=== PATIENT | male | born 1990 | race Caucasian/White ===

== ENCOUNTER 2025-04-10 23:46 | Emergency (ER) | payer OTHER, SELFPAY ==
--- NOTE | 2025-04-10 23:55 | EKG_ITS ---
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
[2025-04-10 23:56] VITALS: PULSE 91; O2SAT 99
--- NOTE | 2025-04-10 23:59 | DI.RAD.S_ITS ---
PROCEDURE: XR CHEST 1V INDICATIONS: Chest Pain TECHNIQUE: One view of the chest was acquired. COMPARISON: None. FINDINGS: Surgical changes and devices: None. Lungs and pleura: Lungs are clear. No pleural effusions or pneumothorax. Mediastinum: Mediastinal contours appear normal. Heart size is normal. Bones and chest wall: No suspicious bony lesions. Overlying soft tissues appear unremarkable. IMPRESSION: No acute cardiopulmonary abnormality is seen. Dictated by: New Quevedo M.D. on 04/11/2025 at 0:36 Approved by: New Quevedo M.D. on 04/11/2025 at 0:37
[2025-04-11] VITALS: BP 165/90; PULSE 82; RESP 16; TEMP 37; O2SAT 99; BMI 47.3
[2025-04-11 00:02] VITALS: BP 147/82; PULSE 87; O2SAT 100
--- NOTE | 2025-04-11 00:15 | PC.NURSE ---
c/o intermittent chest pressure in the upper left chest non-radiating and is relieved with burping
[2025-04-11 00:21] LABS: Add Manual Diff / Slide Review NO; Hematocrit 43.6 % (41-53); Hemoglobin 15.0 g/dL (13.5-17.5); Lymphocytes Absolute Auto 3400 /uL (1100-4500); Mean Corpuscular HGB Conc 34.4 % (30-36); Mean Corpuscular Hemoglobin 29.0 PG (26-34); Mean Corpuscular Volume 84.3 fL (80-100); Platelet Count 323 X10^3/uL (150-400)
[2025-04-11 00:23] LABS: INR 1.0 (0.9-1.3); Prothrombin Time 11.1 SECONDS (9.4-12.5)
[2025-04-11 00:26] LABS: PTT Partial Thromboplastin Tim 33 SECONDS (25.1-36.5)
[2025-04-11 00:27] LABS: Alanine Aminotransferase 63 IU/L (<50); Albumin 4.8 g/dL (3.5-5.0); Albumin Globulin Ratio 1.3 (1.0-2.8); Alkaline Phosphatase 73 U/L (38-126); Blood Urea Nitrogen 17 mg/dL (9-20); Calcium 10.0 mg/dL (8.4-10.2); Carbon Dioxide 30 mmol/L (22-32); Chloride 102 mmol/L (98-107); Creatine Kinase 231 U/L (55-170); Estimated Glomerular Filt Rate > 60 mL/min (>60); Globulin 3.7 g/dL (1.7-4.1); Glucose 113 mg/dL (70-99); HEMOLYSIS < 15 (0-50); Lipase 64 U/L (23-300); Magnesium 2.0 mg/dL (1.6-2.3); Potassium 3.7 mmol/L (3.4-5.1); Sodium 141 mmol/L (137-145); Total Protein 8.5 g/dL (6.3-8.2)
[2025-04-11 00:30] VITALS: BP 134/68; PULSE 76; O2SAT 95
[2025-04-11 00:39] LABS: NT-proBNP (BNP-Adult 18+) 55 pg/mL (<125); Troponin I < 0.012 ng/mL (0.01-0.034)
--- NOTE | 2025-04-11 00:41 | ED.CHESTPAIN ---
HPI - Chest Pain General Chief Complaint: Chest Pain Stated Complaint: Chest Pain, L Arm pain Time Seen by Provider: 04/11/25 00:11 Source: patient Mode of arrival: Ambulatory Limitations: no limitations History of Present Illness HPI narrative: 34-year-old male with no prior cardiac history or family history or other risk factors presents with worsening GERD in the past 2 days and now seems more left-sided chest pain off and on. No other symptoms. Related Data Previous Rx's ?Medication ?Instructions ?Recorded omeprazole 20 mg capsule,delayed 20 mg PO DAILY #14 caps 04/11/25 release Allergies Allergy/AdvReac Type Severity Reaction Status Date / Time No Known Drug Allergies Allergy Verified 04/11/25 00:00 Review of Systems Review of Systems ROS Unobtainable: All systems reviewed & are unremarkable except as noted in HPI and below Patient History Social History Smoking Status: Former smoker Smoking Status: Former smoker Exam Narrative Exam Narrative: General: Patient appears to be in no acute distress, acting appropriately Head: normocephalic, atraumatic, HEENT: Pupils equal round reactive, eyes tracking well, neck supple, no JVD Heart: regular rate and rhythm, no murmurs, rubs, or gallops heard Lungs: clear to auscultation, no adventitious sounds Abdomen: soft , nontender, nondistended, positive bowel sounds Neurological: no focal neurological signs, moving all extremities well, alert and oriented x3, Psych: good judgment ,good insight, mood is normal. Initial Vital Signs Initial Vital Signs: Vital Signs Pulse Rate 91 H 04/10/25 23:56 Pulse Oximetry 99 04/10/25 23:56 Scores HEART Score Heart Score history: Slightly Suspicious Heart Score EKG: Normal Heart Score Age: < 45 years old Heart Score risk factors: No known risk factors Heart Score troponin: < or = to normal limit Heart Score Total: 0 Course Orders Ordered: ED Orders 04/10/25 23:50 EKG-12 Lead Stat 04/10/25 23:59 XR chest 1V Stat EKG-12 Lead Stat Discontinued Medications Al Hydrox/Mg Hydrox/Simethicone 30 ml/ Lidocaine HCl 15 ml 0 ml PO NOW ONE Stop: 04/11/25 00:41 Last Admin: 04/11/25 00:50 Dose: 45 ml Documented By: LUCY Reevaluation(s) Reevaluation #1: Upon re-evaluation, patient's chest pain is resolved after the GI cocktail. Vital Signs Vital signs: Vital Signs - 8 hr 04/10/25 23:56 04/11/25 00:00 04/11/25 00:00 Temperature 98.6 F Pulse Rate 91 H 82 82 Respiratory Rate 16 Blood Pressure 165/90 H Pulse Oximetry 99 99 99 Oxygen Delivery Method Room Air 04/11/25 00:02 04/11/25 00:02 04/11/25 00:30 Temperature Pulse Rate 87 Respiratory Rate Blood Pressure 147/82 H 134/68 Pulse Oximetry 100 Oxygen Delivery Method 04/11/25 00:30 04/11/25 01:00 04/11/25 01:00 Temperature Pulse Rate 76 77 Respiratory Rate Blood Pressure 134/70 Pulse Oximetry 95 94 Oxygen Delivery Method 04/11/25 01:30 04/11/25 01:30 04/11/25 02:00 Temperature Pulse Rate 77 Respiratory Rate Blood Pressure 121/69 118/68 Pulse Oximetry 93 Oxygen Delivery Method 04/11/25 02:00 Temperature Pulse Rate 73 Respiratory Rate Blood Pressure Pulse Oximetry 95 Oxygen Delivery Method MDM - Chest Pain Lab Data 04/10/25 00:03 04/10/25 00:03 Labs: Lab Results 04/10/25 Range/Units 00:03 WBC 10.7 (4.5-11.0) X10^3/uL RBC 5.17 (4.5-5.9) X10^6/uL Hgb 15.0 (13.5-17.5) g/dL Hct 43.6 (41-53) % MCV 84.3 (80-100) fL MCH 29.0 (26-34) PG MCHC 34.4 (30-36) % RDW 13.9 (11.6-14.8) % Plt Count 323 (150-400) X10^3/uL Neut % (Auto) 57.7 (50-75) % Lymph % (Auto) 31.7 (25-40) % [place] % (Auto) 7.4 (3-14) % Eos % (Auto) 2.0 (2-4) % Baso % (Auto) 1.2 (0-2) % Neut # (Auto) 6200 (7535-8110) /uL Lymph # (Auto) 3400 (4180-5676) /uL [place] # (Auto) 800 (0-900) /uL Eos # (Auto) 200 (0-450) /uL Baso # (Auto) 100 (0-100) /uL PT 11.1 (9.4-12.5) SECONDS INR 1.0 (0.9-1.3) APTT 33 (25.1-36.5) SECONDS Sodium 141 (137-145) mmol/L Potassium 3.7 (3.4-5.1) mmol/L Chloride 102 (98-107) mmol/L Carbon Dioxide 30 (22-32) mmol/L BUN 17 (9-20) mg/dL Creatinine 0.89 (0.66-1.25) mg/dL Estimated GFR > 60 (>60) mL/min BUN/Creatinine Ratio 19.1 (6-22) Glucose 113 H (70-99) mg/dL Calcium 10.0 (8.4-10.2) mg/dL Magnesium 2.0 (1.6-2.3) mg/dL Total Bilirubin 0.6 (0.2-1.3) mg/dL AST 40 (17-59) IU/L ALT 63 H (<50) IU/L Alkaline Phosphatase 73 (38-126) U/L Total Creatine Kinase 231 H (55-170) U/L Troponin I < 0.012 (0.01-0.034) ng/mL NT-Pro-B Natriuret Pep 55 (<125) pg/mL Total Protein 8.5 H (6.3-8.2) g/dL Albumin 4.8 (3.5-5.0) g/dL Globulin 3.7 (1.7-4.1) g/dL Albumin/Globulin Ratio 1.3 (1.0-2.8) Lipase 64 (23-300) U/L Imaging Data Chest x-ray: Radiologist's Impression: No acute cardiopulmonary abnormality is seen. ECG Data Interpretation: EKG shows a normal sinus rhythm, left axis deviation, normal [place] intervals normal QRS duration no STT wave changes. Rate is 86 beats per minute. No prior EKG for comparison. MDM Narrative Medical decision making narrative: 34-year-old male with no cardiac history presents with GERD like symptoms producing some cardiac discomfort. His pain resolved after GI cocktail. Advised to go on a gerd diet and will start omeprazole for the patient for the next 2 weeks. Cardiac workup negative here in the ED. follow up sooner if pain resumes. Discharge Plan Departure Patient Disposition: Home Clinical Impression: Atypical chest pain, Chest pain due to GERD Instructions: DI for Gastroesophageal Reflux Disease (GERD), GERD Diet Activity Restrictions/Additional Instructions: Advised that GERD is the most likely culprit of his chest discomfort. We will do a trial of Nexium for the next 2 weeks as well as a GERD diet. Patient advised to follow up if symptoms worsen. Prescriptions: New omeprazole 20 mg capsule,delayed release(DR/EC) 20 mg PO DAILY Qty: 14 0RF Stand Alone Forms: Patient Portal/API
[2025-04-11] MEDS: MAG HYDROX/ALUMINUM/SIMETH SUS 30 ML, LIDOCAINE VISCOUS 2% 15 ML PO (00:50)
[2025-04-11 01:00] VITALS: BP 134/70; PULSE 77; O2SAT 94
[2025-04-11 01:30] VITALS: BP 121/69; PULSE 77; O2SAT 93
--- NOTE | 2025-04-11 01:34 | PC.NURSE ---
pt states he thinks the cocktail made his stomach gurgle causing him to feel some pressure in the upper part of his chest, causing him to burp giving him some relief. states he was not really having c/p prior to taking the coctail
[2025-04-11 02:00] VITALS: BP 118/68; PULSE 73; O2SAT 95
== END 2025-04-11 02:15 | disposition home or self-care (01) ==
PROVIDERS: Emergency Provider Family Medicine
DX: K21.9 Gastro-esophageal reflux disease without esophagitis (principal); Z87.891 Personal history of nicotine dependence
CPT/HCPCS: 71045; 80053; 82550; 83690; 83735; 83880; 84484; 85025; 85610; 85730; 93005; 96361; 96365; 96375; 99283; 99284

== ENCOUNTER 2025-04-15 16:16 | Emergency (ER) | payer OTHER, SELFPAY ==
[2025-04-15] VITALS (9 sets, daily range): BP systolic 136–163; BP diastolic 80–101; PULSE 70–95; RESP 16–18; TEMP 37; O2SAT 96–100; BMI 47.3
--- NOTE | 2025-04-15 16:39 | DI.RAD.S_ITS ---
PROCEDURE: XR CHEST 1V INDICATIONS: Chest Pain TECHNIQUE: One view of the chest was acquired. COMPARISON: [facility], CR, XR CHEST 1V, 04/10/2025, 23:53. FINDINGS: Surgical changes and devices: None. Lungs and pleura: Lungs are clear. No pleural effusions or pneumothorax. Mediastinum: Mediastinal contours appear normal. Heart size is normal. Bones and chest wall: No suspicious bony lesions. Overlying soft tissues appear unremarkable. IMPRESSION: No acute cardiopulmonary pathology. Dictated by: Timmy Newton M.D. on 04/15/2025 at 17:15 Approved by: Timmy Newton M.D. on 04/15/2025 at 17:15
--- NOTE | 2025-04-15 17:03 | EKG_ITS ---
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
--- NOTE | 2025-04-15 19:54 | PC.NURSE ---
Lab states they never received initial set of blood tubes. [place] drawn and sent to lab.
[2025-04-15 20:07] LABS: Add Manual Diff / Slide Review NO; Hematocrit 45.1 % (41-53); Hemoglobin 15.4 g/dL (13.5-17.5); Lymphocytes Absolute Auto 2600 /uL (1100-4500); Mean Corpuscular HGB Conc 34.1 % (30-36); Mean Corpuscular Hemoglobin 28.9 PG (26-34); Mean Corpuscular Volume 84.7 fL (80-100); Platelet Count 321 X10^3/uL (150-400)
[2025-04-15 20:10] LABS: INR 1.0 (0.9-1.3); Prothrombin Time 11.6 SECONDS (9.4-12.5)
[2025-04-15 20:13] LABS: PTT Partial Thromboplastin Tim 31 SECONDS (25.1-36.5)
[2025-04-15 20:18] LABS: Alanine Aminotransferase 70 IU/L (<50); Albumin 5.0 g/dL (3.5-5.0); Albumin Globulin Ratio 1.3 (1.0-2.8); Alkaline Phosphatase 69 U/L (38-126); Blood Urea Nitrogen 15 mg/dL (9-20); Calcium 9.4 mg/dL (8.4-10.2); Carbon Dioxide 28 mmol/L (22-32); Chloride 102 mmol/L (98-107); Creatine Kinase 148 U/L (55-170); Estimated Glomerular Filt Rate > 60 mL/min (>60); Globulin 3.9 g/dL (1.7-4.1); Glucose 94 mg/dL (70-99); Lipase 54 U/L (23-300); Magnesium 2.3 mg/dL (1.6-2.3); Potassium 4.3 mmol/L (3.4-5.1); Sodium 140 mmol/L (137-145); Total Protein 8.9 g/dL (6.3-8.2)
[2025-04-15 20:21] LABS: HEMOLYSIS 81 (0-50)
[2025-04-15 20:30] LABS: NT-proBNP (BNP-Adult 18+) < 20 pg/mL (<125); Troponin I < 0.012 ng/mL (0.01-0.034)
--- NOTE | 2025-04-15 21:50 | PC.NURSE ---
pt was here 04/10 with same, pt states he c/p was doing better and he was changing his eating habits, but he thinks today is was a more stressful day at work and he thinks that might have been the problem. pt without any c/p at this time
[2025-04-15 22:34] LABS: Troponin I < 0.012 ng/mL (0.01-0.034)
--- NOTE | 2025-04-15 22:59 | ED.CHESTPAIN ---
HPI - Chest Pain General Chief Complaint: Chest Pain Stated Complaint: Chest pain. Time Seen by Provider: 04/15/25 21:41 Source: patient Mode of arrival: Ambulatory Limitations: no limitations History of Present Illness HPI narrative: 34-year-old male recently evaluated for chest pain with negative workup, was started on omeprazole, now day 4 of new omeprazole course, had substernal precordial discomfort earlier today, no associated nausea or vomiting or diaphoresis, symptoms seemed to be resolved while in the waiting room without specific treatment. Denies cardiac risk factors known of diabetes, hypertension, hyperlipidemia, did smoke for a few years remotely, no family history of persons with CAD diagnosis at young age. Related Data Previous Rx's ?Medication ?Instructions ?Recorded omeprazole 20 mg capsule,delayed 20 mg PO DAILY #14 caps 04/11/25 release Allergies Allergy/AdvReac Type Severity Reaction Status Date / Time No Known Drug Allergies Allergy Verified 04/15/25 16:37 Patient History Social History Smoking Status: Former smoker Smoking Status: Former smoker Exam Narrative Exam Narrative: GENERAL: Well-developed patient, in mild distress. HEAD: Atraumatic. Normocephalic. EYES: Pupils equal round and reactive. Extraocular motions intact. No scleral icterus. No injection or drainage. ENT: Nose without bleeding, purulent drainage. Throat without erythema, tonsillar hypertrophy or exudate. Airway patent. NECK: Trachea midline. Non tender CARDIOVASCULAR: Regular rate and rhythm without murmurs, gallops, or rubs. RESPIRATORY: Clear to auscultation. Breath sounds equal bilaterally. No wheezes, rales, or rhonchi. GASTROINTESTINAL: Abdomen soft, non-tender, nondistended. EXTREMITIES: No edema or joint tenderness. BACK: Nontender without deformity or crepitance. No flank tenderness. NEURO: AOx3. Motor functions grossly nonfocal. SKIN: No rash or erythema of visible areas Initial Vital Signs Initial Vital Signs: Vital Signs Temperature 98.6 F 04/15/25 16:33 Pulse Rate 95 H 04/15/25 16:33 Respiratory Rate 18 04/15/25 16:33 Blood Pressure 163/91 H 04/15/25 16:33 Pulse Oximetry 98 04/15/25 16:33 Oxygen Delivery Method Room Air 04/15/25 16:33 Scores HEART Score Heart Score history: Slightly Suspicious Heart Score EKG: Normal Heart Score Age: < 45 years old Heart Score risk factors: No known risk factors Heart Score troponin: < or = to normal limit Heart Score Total: 0 Course Orders Ordered: ED Orders 04/15/25 19:52 Complete Blood Count AUTO DIFF Stat Comprehensive Metabolic Panel Stat Lipase Stat Magnesium Stat NT-proBNP (BNP-Adult 18+) Stat PTT Partial Thromboplastin Reynaldo Stat Prothrombin Time INR Stat Troponin & CK Cardiac Panel Stat 04/15/25 21:50 Trop I [Troponin I] Stat Vital Signs Vital signs: Vital Signs - 8 hr 04/15/25 21:26 04/15/25 21:27 04/15/25 21:27 Pulse Rate 81 90 Respiratory Rate Blood Pressure 154/85 H Pulse Oximetry 98 98 04/15/25 21:30 04/15/25 22:00 04/15/25 22:30 Pulse Rate 74 77 78 Respiratory Rate 18 Blood Pressure Pulse Oximetry 99 99 96 04/15/25 23:00 04/15/25 23:17 04/15/25 23:17 Pulse Rate 73 70 Respiratory Rate 16 Blood Pressure 136/80 Pulse Oximetry 96 98 MDM - Chest Pain Lab Data Attestation: I reviewed the patient's lab results. Lab results narrative: White blood cell count 58620, hemoglobin 15.4, platelets adequate. Glucose 94 normal. Normal renal function, serum CO2, electrolytes. ALT slight elevation, other liver functions normal. Lipase normal. Troponin negative/unmeasurable x2 interval sets. 04/15/25 19:52 04/15/25 19:52 Labs: Lab Results 04/15/25 04/15/25 Range/Units 19:52 21:50 WBC 10.6 (4.5-11.0) X10^3/uL RBC 5.32 (4.5-5.9) X10^6/uL Hgb 15.4 (13.5-17.5) g/dL Hct 45.1 (41-53) % MCV 84.7 (80-100) fL MCH 28.9 (26-34) PG MCHC 34.1 (30-36) % RDW 13.9 (11.6-14.8) % Plt Count 321 (150-400) X10^3/uL Neut % (Auto) 65.6 (50-75) % Lymph % (Auto) 24.9 L (25-40) % [place] % (Auto) 7.0 (3-14) % Eos % (Auto) 1.6 L (2-4) % Baso % (Auto) 0.9 (0-2) % Neut # (Auto) 7000 (9377-9970) /uL Lymph # (Auto) 2600 (7384-0985) /uL [place] # (Auto) 700 (0-900) /uL Eos # (Auto) 200 (0-450) /uL Baso # (Auto) 100 (0-100) /uL PT 11.6 (9.4-12.5) SECONDS INR 1.0 (0.9-1.3) APTT 31 (25.1-36.5) SECONDS Sodium 140 (137-145) mmol/L Potassium 4.3 (3.4-5.1) mmol/L Chloride 102 (98-107) mmol/L Carbon Dioxide 28 (22-32) mmol/L BUN 15 (9-20) mg/dL Creatinine 0.82 (0.66-1.25) mg/dL Estimated GFR > 60 (>60) mL/min BUN/Creatinine Ratio 18.3 (6-22) Glucose 94 (70-99) mg/dL Calcium 9.4 (8.4-10.2) mg/dL Magnesium 2.3 (1.6-2.3) mg/dL Total Bilirubin 0.9 (0.2-1.3) mg/dL AST 43 (17-59) IU/L ALT 70 H (<50) IU/L Alkaline Phosphatase 69 (38-126) U/L Total Creatine Kinase 148 (55-170) U/L Troponin I < 0.012 < 0.012 (0.01-0.034) ng/mL NT-Pro-B Natriuret Pep < 20 (<125) pg/mL Total Protein 8.9 H (6.3-8.2) g/dL Albumin 5.0 (3.5-5.0) g/dL Globulin 3.9 (1.7-4.1) g/dL Albumin/Globulin Ratio 1.3 (1.0-2.8) Lipase 54 (23-300) U/L ECG Data Attestation: I personally reviewed and interpreted this ECG as follows: Interpretation: 1703, normal sinus rhythm, no obvious ST segment elevation or depression changes. Low amplitude lead 3 noted, but adequate in other inferior contiguous leads. [place] 190, QRS 102, QTC 445. MDM Narrative Medical decision making narrative: 34-year-old male recently seen for chest pain with a negative workup, day 4 new prescription omeprazole from discharge, add substernal chest discomfort. Seemed better during waiting room evaluation. Resolved symptoms without specific ED treatment. Heart score equals 0 EKG without obvious ischemic changes, sinus rhythm. Lab data: White blood cell count 13371, hemoglobin 15.4, platelets adequate. Glucose 94 normal. Normal renal function, serum CO2, electrolytes. ALT slight elevation, other liver functions normal. Lipase normal. Troponin negative/unmeasurable x2 interval sets. Can follow up with local licensed psychologist, given contact information for Dr. Rodriguez, further workup as an outpatient for now. Advised increased dose of omeprazole to 1 tablet twice daily for 1st one-week, and then resume daily maintenance regimen. Might need follow up EGD. Patient agreeable, expressed understanding of discharge plan. Return precautions discussed. Discharge Plan Departure Patient Disposition: Home Clinical Impression: Chest pain Instructions: DI for Atypical Chest Pain Activity Restrictions/Additional Instructions: Chest pain with recent evaluation reassuring, having started omeprazole medication once daily for antacid control treatment. Chest pain earlier today, resolved without specific treatment while in the waiting room. EKG, blood tests, chest x-ray studies again reassuring. No identified cardiac risk factors. Consider increased dose of omeprazole to 1 tablet twice daily for the next week or 2, this is available [id number], and then resume once daily dosing. You have follow up upcoming with your new primary care provider. Consider seeing local cardiologists for further cardiac workup as needed as an outpatient for now. Contact information given for clinic of local licensed psychologist Dr. Rodriguez. You might need referral for Cardiology consultation through your insurance, however you might be able to self refer, query your insurance and provider about cardiology local follow up for further consultation as needed. Return earlier to this/nearest emergency department for any change worsening symptoms concerns prior. Prescriptions: No Action omeprazole 20 mg capsule,delayed release(DR/EC) 20 mg PO DAILY Qty: 14 0RF Referrals: Timmy Rodriguez MD [Physician, Cardiology] Stand Alone Forms: Patient Portal/API
== END 2025-04-15 23:23 | disposition home or self-care (01) ==
PROVIDERS: Emergency Medicine; Emergency Provider Emergency Medicine
DX: R07.89 Other chest pain (principal)
CPT/HCPCS: 71045; 80053; 82550; 83690; 83735; 83880; 84484; 85025; 85610; 85730; 93005; 99281; 99284